=== PATIENT | female | born 1995 | race Caucasian/White ===

== ENCOUNTER 2024-11-13 15:35 | Outpatient (REF) | payer OTHER, SELFPAY ==
[2024-11-13 16:41] LABS: MANUAL DIFF FLAG NO
[2024-11-13 17:13] LABS: Hematocrit 38.1 % (37.0-47.0); Hemoglobin 12.9 g/dl (12.0-16.0); Imm Gran Abs Auto 0.02 X10*3/uL (0.00-0.03); Imm Gran Pct Auto 0.3 % (0.0-0.4); Lymphocytes Absolute Auto 2.9 X10*3/uL (1.2-4.9); Mean Corpuscular HGB Conc 33.9 g/dl (31.0-35.0); Mean Corpuscular Hemoglobin 30.5 pg (27.0-33.0); Mean Corpuscular Volume 90.1 fL (80.0-98.0); NRBC Abs Auto 0.000 X10*3/uL (0.0-0.012); NRBC Pct Auto 0.0 /100WBC (0.0-0.2); Platelet Count 320 X10*3/uL (160-400); Red Blood Count 4.23 X10*6/uL (4.20-5.50); White Blood Count 7.6 X10*3/uL (4.8-10.8)
[2024-11-13 17:18] LABS: Hemoglobin A1C 120.9273 umol/L; Total Hemoglobin (HGBA1C) 3407.7121 umol/L
[2024-11-13 17:36] LABS: Appearance Urine Clear; Glucose Urine UA Negative (Negative); PH 7.5 (5.0-9.0); Specific Gravity - Urine <= 1.005 (1.005-1.025)
[2024-11-13 17:48] LABS: Alanine Aminotransferase 17 U/L (0-31); Albumin Level 5.0 g/dL (3.5-5.0); Alkaline Phosphatase 63 U/L (39-117); Anion Gap 11 (12-20); Aspartate Amino Transferase 13 U/L (5-31); Blood Urea Nitrogen 9 mg/dL (9-16); Calcium 9.9 mg/dL (8.4-10.2); Carbon Dioxide 29 mmol/L (22-29); Chloride 106 mmol/L (96-108); Estimated Glomerular Filt Rate > 60; Magnesium 2.2 mg/dL (1.6-2.6); Potassium 3.8 mmol/L (3.3-5.1); Sodium 142 mmol/L (135-145); Total Protein 7.5 g/dL (6.5-8.0)
[2024-11-13 18:10] LABS: Folate 15.2 ng/mL (> or = 4.0); Vitamin B12 461 pg/mL (200-900)
== END 2024-11-13 15:36 | disposition home or self-care (01) ==
LOC: HO.LAB 15:35
PROVIDERS: PCP Physician Assistant Medical; Visit Provider Physician Assistant Medical
DX: Z00.00 Encounter for general adult medical examination without abnormal findings (principal); Z01.818 Encounter for other preprocedural examination; M23.41 Loose body in knee, right knee; F41.9 Anxiety disorder, unspecified; E04.1 Nontoxic single thyroid nodule
CPT/HCPCS: 36415; 80053; 81003; 82248; 82306; 82607; 82746; 83036; 83735; 84443; 85025; 86140; 96127

== ENCOUNTER 2024-11-13 15:35 | Outpatient (AMB) | payer OTHER, SELFPAY ==
--- NOTE | 2024-11-13 15:39 | A.OFFPC_ITS ---
Vital Signs 11/13/24 15:43 Height 5 ft 4.09 in Weight 139 lb BMI 23.8 BP 118/57 L Respiration 14 Pulse 66 Pulse Source Pulse Oximeter Temp 98.2 F Temp Source Temporal Artery Scan Pulse Oximetry (%) 97 Oxygen Delivery Method Room Air Intake Visit Reasons: preop Medical Affairs Manager Required: No Accompanied by: Self / Same As Patient Allergies No Known Allergies Allergy (Verified 11/13/24 16:41) Medication List - Last Reconciled 11/13/24 by Indy Alonzo PA-C No Known Home Meds Tobacco use date assessed: 11/13/24 Dental Screening Dental Screen Date: 11/13/24 Did you have a dental visit in the last 12 months?: No Did you have a dental problem in the last 6 months where you did not have access to dental care?: No Was dental information given to patient?: Patient has dentist HPI preop HPI Details The patient is a 29-year-old female presenting for a annual physical exam in addition a preoperative appointment for right knee arthroscopy and loose body removal. She experienced sudden right knee pain while bending down, which progressed to a burning sensation and the feeling of quarters in her knee. An x- ray and MRI confirmed a loose body in the knee, likely from a previous injury. The patient reports anxiety, with occasional chest pain, but denies significant past surgical history except for a minor procedure at age [age]. She has no known anesthesia issues, though she recalls vomiting post-operatively as a child. An enlarged thyroid was noted during the physical examination, with a family history of thyroid issues. Previous blood work three years ago was unremarkable despite occasional throat pain. 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 - Family Planning: Recently removed IUD and started taking folic acid in preparation for . [facility] Medical History (Updated 11/13/24 @ 16:44 by Indy Alonzo PA-C) Anxiety Loose body of right knee Annual physical exam Thyroid nodule Pre-op evaluation Family History Father Basal cell carcinoma Mother No problems noted. Social History Housing: House Alcohol intake: current Alcohol intake frequency: holidays/special occasions only Patient Tobacco Use Status: Never used Tobacco service: No Current occupational status: employed Cognitive needs: No Hearing needs: No Vision needs: Yes (rx glasses) Questionnaire PHQ-9 Over the last 2 weeks, how often have you been bothered by any of the following problems? 1. Little interest or pleasure in doing things: not at all 2. Feeling down, depressed, or hopeless: not at all 3. Trouble falling or staying asleep, or sleeping too much: not at all 4. Feeling tired or having little energy: not at all 5. Poor appetite or overeating: not at all 6. Feeling bad about yourself - or that you are a failure or have let yourself or your family down: not at all 7. Trouble concentrating on things, such as reading the newspaper or watching television: not at all 8. Moving or speaking so slowly that other people could have noticed. Or the opposite - being so fidgety or restless that you have been moving around a lot more than usual: not at all 9. Thoughts that you would be better off or of hurting yourself in some way: not at all Total score: 0 Depression Screening Interpretation: Negative Depression Screening Done: Yes 43295 - PHQ-9 Billing: Yes Source: Developed by Drs. Ricky Marcus, Keily Rico, Arsenio Jean Baptiste and colleagues, with an educational christine from [facility]. Thrive Questionnaire Date Thrive assessed: 11/13/24 I am a: Patient What is your living situation today?: I have a steady place to live Within the past 12 months, did the food you bought not last and you didn't have the money to get more?: Never true Within the past 12 months, did you worry whether your food would run out before you got money to buy more?: Never true Do you have trouble paying for medicines?: No Do you have trouble getting transportation to medical appointments?: No Do you have trouble paying your heating and electricity bill?: No Do you have trouble taking care of your child, family member or friend?: No Do you have trouble with day-to-day activities such as bathing, preparing meals, shopping, managing finances, etc.?: No Are you currently unemployed and looking for a job?: No Are you interested in more education?: No Please select the resources that you would like help with: None THRIVE Score: 0 AUDIT C Alcohol Use Questionnaire (AUDIT-C) 1. How often do you have a drink containing alcohol?: Monthly or less 2. How many drinks containing alcohol do you have on a typical day when you are drinking?: 1 or 2 3. How often do you have six or more drinks on one occasion?: Never Total Score: 1 Score Reviewed/Action Taken: No ANNA MARIE-7 AMB Questionnaire ANNA MARIE-7 Date ANNA MARIE - 7 assessed: 11/13/24 Feeling nervous, anxious, or on edge: 2 = More than half the days Not being able to stop or control worryin = Several days Worrying too much about different things: 1 = Several days Trouble relaxin = Several days Being so restless that it is hard to sit still: 1 = Several days Becoming easily annoyed or irritable: 0 = Not at all Feeling afraid as if something awful might happen: 0 = Not at all Total ANNA MARIE-7 score (0-4 normal; 5-9 mild; 10-14 moderate; 15-21 severe): 6 Source: Developed by Drs. Ricky Marcus, Keily Rico, Arsenio Jean Baptiste and colleagues, with an educational christine from [facility]. ANNA MARIE-7 Assessment Billing ANNA MARIE-7 Assessment Tool: ANNA MARIE-7 Assessment 47490 Review of Systems Const Details: - Cardiovascular: Denies chest pain, orthopnea, or syncope. - Respiratory: Denies dyspnea, cough, or wheezing. - Musculoskeletal: Reports right knee pain with inability to hyperextend. - Endocrine: Reports occasional throat pain, denies other symptoms. All systems reviewed & are unremarkable except as noted in HPI and below Physical exam (Primary Care) Vital Signs: Last Vital Signs Temp 98.2 F 11/13/24 15:43 Pulse 66 11/13/24 15:43 Resp 14 11/13/24 15:43 BP 118/57 L 11/13/24 15:43 Pulse Ox 97 11/13/24 15:43 Oxygen Delivery Method Room Air 11/13/24 15:43 Care Plan Goal for BP management: <140/90 at Goal BMI result Body Mass Index 23.8 Normal BMI Tobacco/Smoking Status: Tobacco use Status Tobacco use date assessed 11/13/24 11/13/24 15:41 Patient Tobacco Use Status Never used Tobacco 11/13/24 15:48 PHQ-9: PHQ-9 Score PHQ-9: Total score 0 11/13/24 15:49 Depression Screening Interpretation: Negative Thrive Assessment: Date of Thrive Assessment Date Thrive assessed 11/13/24 11/13/24 15:41 Const Other: Appearance: Alert. Oriented X3. No acute distress. Head: Normal external exam. Normocephalic. Atraumatic. Eyes: Pupils are equal, round, and reactive to light. Extraocular movements intact. Conjunctiva and sclera normal. Eyelids normal. Ears: External auditory canal normal. Tympanic membranes normal. Throat: Pharynx normal. Uvula midline. Moist mucous membranes. Neck: Normal inspection. Neck supple. Full range of motion. No adenopathy. Thyroid appears slightly enlarged. No meningeal signs. No neck mass noted. Cardiovascular: Normal heart rate and rhythm. Heart sound normal. No murmurs noted. Pulses normal throughout. Respiratory: No respiratory distress. Painless inspiration. Breath sounds normal. No wheezes/rales/rhonchi noted. Chest nontender. No accessory muscle usage noted or decreased air movement noted. Abdomen: Soft and nontender. Bowel sounds normal in all 4 quadrants. No distention noted. No organomegaly noted. No visible injury noted. Back: No costovertebral angle tenderness. Full range of motion noted. Skin: Skin warm and dry. Normal skin color. Normal skin turgor. No rashes/lesions/lacerations noted. Extremities: No lower extremity edema. Right knee cannot hyperextend. Extremities exhibit normal range of motion. Extremities nontender. Neuro: Oriented X 3. No motor deficit. No sensory deficit. Reflexes normal. Results Reviewed Results Reviewed: - Imaging: X-ray and MRI of the right knee showed a loose body. Coding Level of Care Code New Pt Level 4 (18497) New Pt Prev Care 18-39yr(87684 Diagnoses Annual physical exam Z00.00 Pre-op evaluation Z01.818 Loose body of right knee M23.41 Anxiety F41.9 Thyroid nodule E04.1 Additional Codes PHQ-9 - 94260 - PHQ-9 Billing: Yes ([id number]) ANNA MARIE-7 Assessment Billing - ANNA MARIE-7 Assessment Tool: ANNA MARIE-7 Assessment [id number] ([id number]) Time Spent (min) 50 Assessment & Plan Assessment & Plan (1) Annual physical exam: Code(s): Z00.00 - Encounter for general adult medical examination without abnormal findings Category: Medical Plan: Patient has a normal physical exam today. Preventative labs ordered at this time. Baseline EKG ordered at this time. (2) Pre-op evaluation: Code(s): Z01.818 - Encounter for other preprocedural examination Category: Medical Plan: Regarding preop clearance, the patient is at acceptable risk for proposed surgery. Reviewed with the patient that no surgery is completely free of risk and that this examination is to assist the surgeon and reviewing informed consent. (3) Loose body of right knee: Code(s): M23.41 - Loose body in knee, right knee Category: Medical Plan: The patient is scheduled for right knee arthroscopy and loose body removal on 11/14/2024 under general anesthesia at the [facility]. Preoperative blood work including CBC, CMP, and EKG are ordered to ensure surgical readiness. (4) Anxiety: Code(s): F41.9 - Anxiety disorder, unspecified Category: Medical Plan: The patient reports anxiety, particularly related to the upcoming surgery and family planning. Reassurance was provided regarding the benign nature of most thyroid nodules to alleviate anxiety. (5) Thyroid nodule: Code(s): E04.1 - Nontoxic single thyroid nodule Category: Medical Plan: An ultrasound of the thyroid is ordered to assess the enlargement noted during the physical examination. The patient is advised that most thyroid nodules are benign, and follow-up will depend on ultrasound findings. Plan Plan Patient was informed and verbally consented to the use of an ambient scribe for clinic note documentation during this visit. 1. Right Knee Loose Body The patient is scheduled for right knee arthroscopy and loose body removal on 11/14/2024 under general anesthesia at the [facility]. Preoperative blood work including CBC, CMP, and EKG are ordered to ensure surgical readiness. 2. Anxiety The patient reports anxiety, particularly related to the upcoming surgery and family planning. Reassurance was provided regarding the benign nature of most thyroid nodules to alleviate anxiety. 3. Enlarged Thyroid An ultrasound of the thyroid is ordered to assess the enlargement noted during the physical examination. The patient is advised that most thyroid nodules are benign, and follow-up will depend on ultrasound findings. I discussed with the patient the plan for her upcoming right knee arthroscopy and loose body removal, emphasizing the importance of preoperative blood work and EKG to ensure surgical readiness. We also talked about her anxiety, particularly concerning the surgery and family planning, and I reassured her about the benign nature of most thyroid nodules. Orders: Orders C Reactive Protein Today Z00.00 - Encounter for general adult medical examination without abnormal findings Hemoglobin A1c Today Z00.00 - Encounter for general adult medical examination without abnormal findings Magnesium Today Z00.00 - Encounter for general adult medical examination without abnormal findings Comprehensive Met. Panel Today Z00.00 - Encounter for general adult medical examination without abnormal findings Vitamin D 25-OH Total Today Z00.00 - Encounter for general adult medical examination without abnormal findings ECG 12 lead EKG Today Z01.818 - Encounter for other preprocedural examination US thyroid Today E04.1 - Nontoxic single thyroid nodule Complete Blood Count Auto Diff Today Z00.00 - Encounter for general adult medical examination without abnormal findings Liver Panel Today Z00.00 - Encounter for general adult medical examination without abnormal findings Vitamin B12 and Folate Today Z00.00 - Encounter for general adult medical examination without abnormal findings TSH reflex Free T4 Today Z00.00 - Encounter for general adult medical examination without abnormal findings UA CC w/rflx Micro + Cult Today Z00.00 - Encounter for general adult medical examination without abnormal findings Patient Instructions: - Go to the hospital immediately for blood work and EKG. - Schedule an ultrasound for the thyroid within one month. - Follow up with endocrinology if thyroid ultrasound shows nodules. - Fax results to orthopedics prior to surgery.
[2024-11-13 15:43] VITALS: BP 118/57; PULSE 66; RESP 14; TEMP 36.8; O2SAT 97; BMI 23.8
--- OUTSIDE RECORDS SUMMARY | 2024-11-13 16:49 | XMS_ITS | Continuity of Care Document ---
Author Organization [place] [facility] P[facility] Burns AONE [place] Address [address] [facility] [address] [place] [address] Care Team Providers Care Environmental Auditor Name Role Phone ARJUN MATAMOROS Primary Care Provider [phone] ARJUN MATAMOROS Referring Provider Assessment Encounter Date Assessment Date Assessment LastModified by Organization Details LastModified Time 11/12/2024 11/12/2024 Persistent right knee pain in the setting of a medial femoral condyle OCD lesion, loose body. She finds her current level of symptoms unmanageable and wishes to proceed with surgical intervention. We will go ahead and confirm her surgical date. PLANNED PROCEDURE: right knee arthroscopy, loose body removal, debridement medial femoral condyle OCD lesion, possible microfracture, possible AYANNA biopsy. I reviewed my findings and plan with the patient today. We went over the nature of the upcoming surgery as well as the anticipated recovery time. She understands that the specific procedure performed will be dictated by our findings at the time of surgery. She understands that additional pathology may be identified and it would be addressed accordingly. She has given her permission to address other pathology if it is necessary. She understands that this may ultimately end up being a two-stage procedure if she does not respond symptomatically to the debridement, loose body removal, chondroplasty. Informed consent was obtained today. The patient clearly understands the information presented and is capable of making decisions voluntarily. They demonstrated a clear understanding of the problem and the risks and benefits of treatment. The discussion included a description of the proposed treatment, including the purpose, duration, methods and implements used, as well as the probability of success. We discussed all material risks of the procedure, as well as the possibility of unforeseen or unanticipated risks. The material risks include, but are not limited to infection, bleeding, injury to blood vessels and/or nerves, scarring, stiffness, no change in symptoms, need for further surgery, blood clots, stroke, and . The discussion further included reasonable alternatives and the risks of not being treated. Postoperative pain medications were reviewed, and side effects discussed. We confirmed their postoperative appointment. I have recommended the patient use a cold/compression unit post-operatively to reduce swelling, improve pain, and reduce the use of oral narcotic pain medications. The patient has been instructed on the use of the machine. The cuff will always be applied with the skin protected. PRIOR: I went over my findings with her. We looked at the MRI together. This does confirm our suspicion that she has an unstable OCD lesion of her medial femoral condyle. I reviewed the natural history. At this point the lesion looks unstable and I think it is highly likely she will continue to experience knee symptoms with an effusion and mechanical symptoms unless we addressed things. She is in agreement, she is feeling limited with activity due to her persistent mechanical symptoms in the knee. She is a candidate to consider a right knee arthroscopy, loose body removal, debridement medial femoral condyle OCD lesion, possible microfracture, possible AYANNA biopsy. I went over the nature of the surgery with her as well as the anticipated recovery time. This may be the first stage of a two-stage procedure, she may ultimately be a candidate for a cartilage zoroastrianism procedure down the line. Discussed with her that sometimes patients after a first stage with debridement of the lesion and removal of loose bodies can obtain satisfactory relief and not necessarily need anything further. Discussed that an arthroscopy is also very helpful for diagnostic purposes to assess the size of the lesion and determine what other procedures might be of benefit for her. She is going to give this all consideration and we will be in touch with the entry level programmer if she desires to move forward. In the interim I suggest she curtail any high demand activities. Icing protocol reviewed. PRIOR: I went over my findings with her. We looked at her recent x-rays. My suspicion is that she has an unstable OCD lesion of her medial femoral condyle. She does have mild retropatellar degenerative changes. Cannot exclude a concomitant medial meniscus tear. Given her symptoms and findings on x-ray she needs an MRI. Order placed. In the interim she will continue icing per protocol. She will work on gentle stretching and range of motion. She will curtail athletic activities. Recheck in 2 to 3 weeks once we have the MRI done for further decision making. Questions invited and answered. Not available 11/12/2024 12:05:57 Plan of Treatment Reminders Order Date Submit Date Provider Last Modified By Organization Details Last Modified Time Details Appointments [id number] TIME TBD by Facility 2024 02:15P M Tej Luna MD Not available Not available Not available POST-OP 2024 02:15P M MARIA E MOBLEY PA-C Not available Not available Not available Lab None recorded. Referral None recorded. Procedures None recorded. Surgeries None recorded. Imaging None recorded. Medication Orders None recorded. Patient TargetsNo targets recorded. Patient Instructions Encounter Date Encounter Id Patient Instructions Last Modified By Organization Details Last Modified Time 11/12/2024 [id number] I independently reviewed her right knee x-rays from 09/17/2024 that were performed at an outside facility. These were scanned into our joints PACS program. There is irregularity of the medial femoral condyle with adjacent calcification consistent with an OCD lesion. Joint space overall well-maintained. Mild retropatellar spurring. Not available 11/12/2024 05:58:57 Reason for Referral None Reported. Results Created Date Observation Date Name Description Value Unit Range Abnormal Flag Note LastModifiedBy Organization Detail LastModifiedTime 10/13/1910/12/2024 MRI, knee, w/o contr ast No observ ation record ed. [email or web address] [facility] [address], [place], [address], 10/12/2024 12:17:24 10/13/19 25 10/12/2024 MRI, knee, w/o contr ast No observ ation record ed. [email or web address] [facility] ([facility] [address], [place], [address], 10/12/2024 12:17:25 10/13/19 25 10/12/2024 MRI, knee, w/o contr ast No observ ation record ed. [email or web address] [facility] ([facility] [address], [place], [address], 10/12/2024 12:17:25 10/13/19 25 10/12/2024 MRI, knee, w/o contr ast No observ ation record ed. [email or web address] [facility] [address], [place], [address], 10/12/2024 12:17:25 Result Notes None recorded. Problems Name Problem SNOMED Code Status Onset Date Resolution Date Notes Provider Name and Address Organization Details Recorded Time Pain of right knee joint 7901398911922 00 Active 2024 Tej Luna MD [address], [place], [address], [place] [facility], [facility] 06:44:39 Arthropathy of knee joint 988497437 Active 2024 Tej Luna MD [address], [place], [address], [place] [facility] 11:15:31 Effusion of joint of right knee 9695946586296 04 Active 2024 Tej Luna MD [address], [place], [address], [place] [facility], [facility] 5 12:00:31 Problem Notes None recorded. Medical Equipment None Reported. Allergies No known drug allergies Medications Name Sig Start Date Stop Date Status Note LastModified by Organization Details LastModified Time meloxicam 15 mg tablet 1 tablet every day in the morning for 7 days, Start the day after surgery 2024 active Not Available Not Available Not Avai lable Enteric Coated Aspirin 81 mg tablet,ally yed release 1 tablet every 12 hours with meals for 21 days, start day after surgery 2024 active start day after surgery Not Available Not Available Not Available ondansetron 4 mg disintegrat ing tablet Place 1 tablet twice a day by transling ual route as needed, for nausea. 2024 active Not Available Not Available Not Avai lable oxycodone 5 mg tablet 1 tablet every 6-8 hours as needed, do not start until after surgery 2024 active Not Available Not Available Not Avai lable Vitals Date Recorded Body height Body mass index (BMI) Body weight Provider Name and Address Organization Details Last Updated DateTime 11/12/2024 160.02 cm 26 kg/m2 11165.[address] [place] [facility] 11/12/2024 09:42:54 Social History None recorded. Functional Status Question Answer Note LastModified by Organizat ion Details LastModified Time Do you use any illicit or recreational drugs? No [email or web address] Information not available 10/01/2024 Do you or have you ever used any other forms of tobacco or nicotine? No [email or web address] Information not available 10/01/2024 What is your level of alcohol consumption? 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 Family History Nothing Reported. Medical History Condition Response Asthma Y Gynecological HistoryNo gynecological history recorded. Obstetrics History GPAL:G 0 P 0 0 0 0 Past Encounters Encounter ID Performer Location Encounter Start Date Encounter Closed Date Diagnosis/Indication Diagnosis SNOMED-CT Code Diagnosis ICD10 Code Diagnosis IMO Codes Diagnosis Note [id number] MD BIANCA Griffin [address] [address] 10/23/2024 15:52:18 10/23/2024 16:43:01 Pain of right knee joint 8206671712 22194 M25.561 487798 Arthropath y of knee joint 154010748 M95.8 78545521 Effusion o f joint of right knee 3946158544 30295 M25.208 [id number] MD BIANCA Griffin [address] [address] 11/12/2024 09:27:34 11/12/2024 10:11:34 Pain of right knee joint 7673299542 84392 M25.561 272626 Arthropath y of knee joint 824997124 M95.8 42219052 Effusion o f joint of right knee 9592271248 51210 M25.939 [id number] Health Concerns Section Related Observation LastModified by Organization Detai ls LastModified Time None Recorded Concern Status LastModified by Organization Details LastModified Time None Recorded Payers Encounter Date Sequence Insurance Name Policy Number Policy Gregory Covered Member ID Gregory Member ID Guarantor Name 11/12/2024 Maty FLORES [id number] Sara Antoine [id number] Sara Antoine Notes Date Note Type Note Provider Name and Address Organization Details Recorded Time 11/12/2024 text/html Patient presents for reevaluation of her ongoing right knee pain. No interval change in her symptoms. Her symptoms are predominantly mechanical and difficult to predict. She is frustrated by her ongoing symptoms and wishes to proceed with surgical intervention. She denies any allergies. She does not take any blood thinners. She denies a history of blood clots or DVT. Denies a history of clotting disorders. Denies a history of adverse reactions to anesthesia or history of malignant hyperthermia. PRIOR:Patient returns for reevaluation of her right knee. She has been careful with activity and therefore the knee has been somewhat more tolerable. She still is worried about mechanical symptoms. She did have her MRI done and brings it in today for review. PRIOR:Very pleasant 29-year-old female here for an evaluation of right knee pain with mechanical symptoms and swelling. 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 If she would go to a wedding and dance a lot she would have some knee achiness for a day or 2. 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 In late August she was bending down and started to notice some intermittent medial shooting pains. She had a few episodes. The most dramatic episode was around 09/16/2024. The knee swelled up afterwards. She could not put any pressure on the knee for at least 10 minutes. She treated with icing and Advil. She ended up going to an urgent care and had x-rays. She was told she had arthritis . Since that time she has been managing, just being careful. She feels she cannot fully comfortably extend the knee. If she twists or turns the knee can be uncomfortable. At rest she is generally fine. She denies radiating pain to the hip or ankle. She denies any contralateral knee symptoms that are similar. 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 Non-smoker. 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 Tej Luna MD [address], [place], [address], [place] [facility] 11/12/2024 12:06:05 OBGyn Episode No OBEpisode recorded.
--- OUTSIDE RECORDS SUMMARY | 2024-11-13 16:49 | XMS_ITS | Data Portability ---
Author Organization [place] [facility] Piedad Burns AONE [place] Address [address] [place] [address] Care Team Providers Care Marketing Programs Manager Name Role Phone ARJUN MATAMOROS Primary Care Provider [phone] ARJUN MATAMOROS Referring Provider Assessment Encounter Date Assessment Date Assessment LastModified by Organization Details LastModified Time 10/01/2024 10/01/2024 I went over my findings with her. [...] making. Questions invited and answered. Not available 10/01/2024 11:57:46 10/23/2024 10/23/2024 I went over my findings with her. [...] ultimately be a candidate for a cartilage yazidism procedure down the line. Discussed with her [...] we will be in touch with the surgical rn if she desires to move forward. In the interim I suggest she curtail any high demand activities. Icing protocol reviewed. Questions invited and answered. Greater than 30 minutes was spent with the encounter today, including face to face time with the patient, documentation, review of records/imaging if applicable, and coordination of care. PRIOR: I went over my findings with [...] making. Questions invited and answered. Not available 10/23/2024 17:22:21 11/12/2024 11/12/2024 Persistent right knee pain in [...] ultimately be a candidate for a cartilage yazidism procedure down the line. Discussed with her [...] we will be in touch with the surgical rn if she desires to move forward. In [...] Organization Details Last Modified Time Details Appointments [id number] TIME TBD by Facility 2024 02:15P M Tej Luna MD Not available Not available Not available POST-OP 2024 02:15P M MARIA E MOBLEY PA-C Not available Not available Not available Lab None recorded. Referral None recorded. Procedures None recorded. Surgeries knee arthrosco py (SURG) 2024 025 [email or web address] Not available 11/06/2024 12:45:07 Imaging MRI, knee, w/o contrast 2024 025 MAIDA Not available 10/12/2024 12:09:22 Medication Orders None recorded. Patient TargetsNo targets recorded. Patient Instructions Encounter Date Encounter Id Patient Instructions Last Modified By Organization Details Last Modified Time 10/01/2024 [id number] I independently reviewed her right knee x-rays from 09/17/2024 that were performed at an outside facility. These were scanned into our joints PACS program. There is irregularity of the medial femoral condyle with adjacent calcification consistent with an OCD lesion. Joint space overall well-maintained. Mild retropatellar spurring. Not available 10/01/2024 11:57:03 10/23/2024 [id number] I independently reviewed her right knee x-rays from 09/17/2024 that were performed at an outside facility. These were scanned into our joints PACS program. There is irregularity of the medial femoral condyle with adjacent calcification consistent with an OCD lesion. Joint space overall well-maintained. Mild retropatellar spurring. Not available 10/23/2024 07:02:25 11/12/2024 [id number] I independently reviewed her right knee x-rays [...] contr ast No observ ation record ed. [place] [id number] [facility] [address], [place], [address], 10/12/2024 12:17:24 10/13/1910/12/2024 MRI, knee, w/o contr ast No observ ation record ed. [place] [id number] [facility] [address], [place], [address], 10/12/2024 12:17:25 10/13/1910/12/2024 MRI, knee, w/o contr ast No observ ation record ed. [place] [id number] [facility] [address], [place], [address], 10/12/2024 12:17:25 10/13/19 25 10/12/2024 MRI, knee, w/o contr ast No observ ation record ed. [place] [id number] [facility] [address], [place], [address], 10/12/2024 12:17:25 Result Notes None recorded. Problems Name Problem SNOMED Code Status Onset Date Resolution Date Notes Provider Name and Address Organization Details Recorded Time Pain of right knee joint 9363379297635 00 Active 2024 Tej Luna MD [address], [place], [address], [place] [facility] [place], [facility] 06:44:39 Arthropathy of knee joint 555652430 Active 2024 Tej Luna MD [address], [place], [address], [place] [facility] [place], [facility] 11:15:31 Effusion of joint of right knee 1640024462315 04 Active 2024 Tej Luna MD [address], [place], [address], [place] [facility], [facility] 12:00:31 Problem Notes None recorded. Medical Equipment [...] and Address Organization Details Last Updated DateTime 10/01/2024 160.02 cm 25.7 kg/m2 88720.[address] [place] [facility] [place] 10/01/2024 11:03:35 Date Recorded Body height Body mass index (BMI) Body weight Provider Name and Address Organization Details Last Updated DateTime 10/23/2024 160.02 cm 25.9 kg/m2 [address]228[address] [place] [facility] 10/23/2024 16:09:42 Date Recorded Body height Body mass index (BMI) Body weight Provider Name and Address Organization Details Last Updated DateTime 11/12/2024 160.02 cm 26 kg/m2 55074.[address] [place] [facility] 11/12/2024 09:42:54 Social History None recorded. Functional Status Question Answer Note LastModified by Organizat ion Details LastModified Time Do you use any illicit or recreational drugs? No [email or web address] Information not available 10/01/2024 Do you or have you ever used any other forms of tobacco or nicotine? No Information not available 10/01/2024 What is your level of alcohol consumption? 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 Family History Nothing Reported. Medical History Condition Response Asthma Y Gynecological HistoryNo gynecological history recorded. Obstetrics History GPAL:G 0 P 0 0 0 0 Past Encounters Encounter ID Performer Location Encounter Start Date Encounter Closed Date Diagnosis/Indication Diagnosis SNOMED-CT Code Diagnosis ICD10 Code Diagnosis IMO Codes Diagnosis Note [id number] MD BIANCA Griffin [address] [address] 10/01/2024 10:41:27 10/01/2024 11:18:40 Pain of right knee joint 8033982052 96581 M25.561 665650 Arthropath y of knee joint 831147467 M95.8 58635670 Effusion o f joint of right knee 8780894496 71423 M25.747 [id number] MD RADHA [address] [address] 10/23/2024 15:52:18 10/23/2024 16:43:01 Pain of right knee joint 1132629119 74429 M25.561 997861 Arthropath y of knee joint 759457020 M95.8 88494543 Effusion o f joint of right knee 7447408312 04020 M25.824 [id number] Tej Luna MD [address] [place] [address] 11/12/2024 09:27:34 11/12/2024 10:11:34 Pain of right knee joint 8792800843 55251 M25.561 631441 Arthropath y of knee joint 421509742 M95.8 63279460 Effusion o f joint of right knee 9857498616 61427 M25.398 2496788 Health Concerns Section Related Observation LastModified by Organization Detai ls LastModified Time None Recorded Concern Status LastModified by Organization Details LastModified Time None Recorded Advance Directives Directive None Recorded Payers Insurance Date Sequence Insurance Name Policy Number Policy Gregory Covered Member ID Gregory Member ID Guarantor Name 11/09/2024 1 SANDRA [id number] Sara Antoine [id number] Sara Antoine Notes Date Note Type Note Provider Name and Address Organization Details Recorded Time 10/01/2024 text/html Very pleasant 29-year-old female here for an evaluation [...] that are similar. 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 Tej Luna MD [address], [place], [address], [place] [facility] 10/01/2024 12:00:56 10/23/2024 text/html Patient returns for reevaluation of her right knee. [...] that are similar. 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 Tej Luna MD [address], [place], [address], [place] [facility], [facility] 10/23/2024 17:22:29 11/12/2024 text/html Patient presents for reevaluation of [...] that are similar. 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 Tej Luna MD [address], [place], [address], [place] [facility], [facility] 11/12/2024 12:06:05 OBGyn Episode No OBEpisode recorded.
--- OUTSIDE RECORDS SUMMARY | 2024-11-13 16:49 | XMS_ITS ---
Author Name [facility] Organization Unknown History of Medication Use Medication Directions Dispensed Refills Start Date End Date Stat us active Problems Problem Status Onset Date Problem Type Date of Resoluti on Source Arthropathy of knee joint active 2024-10-01 ProblemAct [facility] Effusion of joint of right knee active 2024-10-01 ProblemAct [facility] Pain of right knee joint active 2024-10-01 ProblemAct [facility] Encounters Encounter Type Encounter Reason Primary Diagnosis Location Date Ambulatory [facility] 11/12/2024 [facility] 11/07/2024 [facility] 10/22/2024 [facility] 10[facility]22/2024 [facility] 10/02/2024 [facility] 10/01/2024 [facility] 10/01/2024 Amb[facility] 10/01/2024 [facility] 10/01/2024 [facility] 09/19/2024 Care Team Organization Name Specialty Phone Email Start Date End Da te [facility] D [facility] 2024 [facility] 2024"
== END 2024-11-13 16:06 | disposition home or self-care (01) ==
PROVIDERS: PCP Physician Assistant Medical; Visit Provider Physician Assistant Medical
DX: Z00.00 Encounter for general adult medical examination without abnormal findings (principal); E04.1 Nontoxic single thyroid nodule; M23.41 Loose body in knee, right knee; F41.9 Anxiety disorder, unspecified

== ENCOUNTER 2024-12-24 11:27 | Outpatient (REF) | payer OTHER, SELFPAY ==
[2024-12-24 12:15] LABS: UPreg QC Valid YES
--- OUTSIDE RECORDS SUMMARY | 2024-12-24 13:49 | XMS_ITS | Data Portability ---
Author Organization [place] [facility] [place] Address [address] [place] [address] Care Team Providers Care Dietary Supervisor Name Role Phone ARJUN MATAMOROS Primary Care Provider ARJUN MATAMOROS Referring Provider [phone] Assessment Encounter Date Assessment Date Assessment LastModified [...] ultimately be a candidate for a cartilage voodoo procedure down the line. Discussed with her [...] we will be in touch with the dust sampler if she desires to move forward. In [...] ultimately be a candidate for a cartilage voodoo procedure down the line. Discussed with her [...] we will be in touch with the dust sampler if she desires to move forward. In [...] invited and answered. Not available 11/12/2024 12:05:57 11/22/2024 11/22/2024 Patient is now 8 days status post right knee surgery and is overall recovering well thus far. I reviewed my findings with the patient today. We reviewed the operative findings. She has physical therapy available to her at her office and I gave her a prescription for this today. She will follow-up in 4 weeks for recheck. Questions were invited and answered. Routine incision care reviewed. Medications reviewed. Side effects discussed. Precautions reviewed. DME adjusted as appropriate. Knee Arthroscopy recovery outline: Start HEP 2 days following surgery. Physical therapy only if needed. May use a knee sleeve if desired. May bear weight to tolerance. Use crutches until you can walk comfortably without a limp. Icing per protocol. 15-20 minutes on affected area with skin protected. May repeat hourly as needed. Alternatively, may use cryomachine with skin precautions. Keep incisions dry until sutures removed. No swimming or submerging incisions for three weeks after surgery. Encourage extension exercises. Goal to regain full ROM by 3-4 weeks. Typical return to work will depend on demands of the occupation. Typical return to athletics is 4-8 weeks and dependent on symptoms and recovery. [email or web address] Not available 11/22/2024 16:46:43 Plan of Treatment Reminders Order Date Submit Date Provider Last Modified By Organization Details Last Modified Time Details Appointments None recorded. Lab None recorded. Referral None recorded. Procedures None recorded. Surgeries knee arthroscopy (SURG) 2024 025 MAIDA Not available 10:07:28 Imaging MRI, knee, w/o contrast 2024 025 MAIDA Not available 12:09:22 Medication Orders None recorded. Patient TargetsNo targets recorded. Patient Instructions Encounter Date Encounter Id Patient Instructions Last Modified By Organization Details Last Modified Time 10/01/2024 [id number] I independently reviewed her right knee x-rays from 09/17/2024 that were performed at an outside facility. These were scanned into our joints PACS program. There is irregularity of the medial femoral condyle with adjacent calcification consistent with an OCD lesion. Joint space overall well-maintained. Mild retropatellar spurring. Not available 10/01/2024 11:57:03 10/23/2024 [id number] I independently reviewed her right knee x-rays from 09/17/2024 that were performed at an outside facility. These were scanned into our joints PACS program. There is irregularity of the medial femoral condyle with adjacent calcification consistent with an OCD lesion. Joint space overall well-maintained. Mild retropatellar spurring. Not available 10/23/2024 07:02:25 11/12/2024 [id number] I independently reviewed her right knee x-rays [...] observ ation record ed. [email or web address] [facility] ([facility]) [address], [place], [address], 10/12/2024 12:17:24 10/13/19 25 10/12/2024 MRI, knee, w/o contr ast No [place]ion [place]. [email or web address] [id number] [facility] ([facility]) [address], [place], [address], 10/12/2024 12:17:25 10/13/19 25 10/12/2024 MRI, knee, w/o contr ast No observ [place]ion [place] ed. [email or web address] [id number] [facility] ([facility]) [address], [place], [address], 10/12/2024 12:17:25 10/13/19 25 10/12/2024 MRI, knee, w/o contr ast No observ ation [place] ed. [email or web address] [id number] [facility] ([facility]) [address], [place], [address], 10/12/2024 12:17:25 Result Notes None recorded. Problems Name Problem SNOMED Code Status Onset Date Resolution Date Notes Provider Name and Address Organization Details Recorded Time Pain of right knee joint 9861051617135 00 Active 2024 Tej Luna MD [address], [place], [address], [place] [facility] 06:44:39 Arthropathy of knee joint 421881847 Active 2024 Tej Luna MD [address], [place], [address], [place] [facility] 5 11:15:31 Effusion of joint of right knee 6098251962868 04 Active 2024 Tej Luna MD [address], [place], [address], [place] [facility] 5 12:00:31 Problem Notes None recorded. Procedures Surgical History Date Name Laterality Status Provider Name and Address Organization Details Recorded Time 11/15/19 25 KNEE ARTHROSCOPY (SURG) completed Carolina Reyes [facility] 11/15/2024 10:07:33 11/15/19 25 KNEE ARTHROSCOPY (SURG) completed Carolina Rodriguezunier [facility] 11/22/2024 11:38:58 Imaging Results None recorded. Procedure Notes None recorded. Medical Equipment None Reported. Allergies No known drug allergies Medications Name Sig Start Date Stop Date Status Note LastModified by Organization Details LastModified Time meloxicam 15 mg tablet 1 tablet every day in the morning for 7 days, Start the day after surgery 2024 active Not Available Not Available Not Avai lable Enteric Coated Aspirin 81 mg tablet,de layed release 1 tablet every 12 hours with meals for 21 days, start day after surgery 2024 active start day after surgery Not Available Not Available Not Available ondansetr on 4 mg disintegr ating tablet Place 1 tablet twice a day by translin gual route as needed, for nausea. 11/22 completed Not Available Not Available Not Available oxycodone 5 mg tablet 1 tablet every 6-8 hours as needed, do not start until after surgery 2024 active Not Available Not Available Not Avai pingle Vitals Date Recorded Body height Body mass index (BMI) Body weight Provider Name and Address Organization Details Last Updated DateTime 10/01/2024 160.02 cm 25.7 kg/m2 [address] [facility] 10/01/2024 11:03:35 Date Recorded Body height Body mass index (BMI) Body weight Provider Name and Address Organization Details Last Updated DateTime 10/23/2024 160.02 cm 25.9 kg/m2 71924.[address] [facility] 10/23/2024 16:09:42 Date Recorded Body height Body mass index (BMI) Body weight Provider Name and Address Organization Details Last Updated DateTime 11/12/2024 160.02 cm 26 kg/m2 88399.[address] [facility] 11/12/2024 09:42:54 Date Recorded Body height Body mass index (BMI) Body weight Provider Name and Address Organization Details Last Updated DateTime 11/22/2024 160.02 cm 26.2 kg/m2 67667.[address] [facility] 11/22/2024 14:29:22 Social History None recorded. Functional Status Question Answer Note LastModified by Organizat ion Details LastModified Time Do you use any illicit or recreational drugs? No [email or web address] Information not available 10/01/2024 Do you or have you ever used any other forms of tobacco or nicotine? No [email or web address] Information not available 10/01/2024 What is your level of alcohol consumption? 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 Family History Nothing Reported. Medical History Condition Response Asthma Y Gynecological HistoryNo gynecological history recorded. Obstetrics History GPAL:G 0 P 0 0 0 0 Past Encounters Encounter ID Performer Location Encounter Start Date Encounter Closed Date Diagnosis/Indication Diagnosis SNOMED-CT Code Diagnosis ICD10 Code Diagnosis IMO Codes Diagnosis Note [id number] [place] [address] 10/01/2024 10:41:27 10/01/2024 11:18:40 Pain of right knee joint 6322744987 82278 M25.561 075962 Arthropath y of knee joint 918845551 M95.8 10508078 Effusion o f joint of right knee 6768133029 60087 M25.351 [id number] [place] [address] 10/23/2024 15:52:18 10/23/2024 16:43:01 Pain of right knee joint 6731730866 39733 M25.561 534752 Arthropath y of knee joint 906074506 M95.8 85505018 Effusion o f joint of right knee 4640652113 89766 M25.784 [id number] Tej Luna MD [place] [address] 11/12/2024 09:27:34 11/12/2024 10:11:34 Pain of right knee joint 0611326104 24719 M25.561 826537 Arthropath y of knee joint 385130962 M95.8 96632324 Effusion o f joint of right knee 3191214731 87277 M25.541 [id number] JEREL LEIVA [address] [place] [address] 11/22/2024 14:15:52 11/22/2024 14:50:20 Postoperative visit 756814237 Z48.89 90191059 History of operative procedure on knee 705787320 Z98.890 213266 DOS 11/14/24: Right knee arthroscop y, loose body removal, debridemen t medial femoral condyle OCD lesion, AYANNA biopsy Health Concerns Section Related Observation LastModified by Organization Detai ls LastModified Time None Recorded Concern Status LastModified by Organization Details LastModified Time None Recorded Advance Directives Directive None Recorded Payers Insurance Date Sequence Insurance Name Policy Number Policy Gregory Covered Member ID Gregory Member ID Guarantor Name 11/28/2024 1 SANDRA [id number] Sara Antoine [id number] Sara Antoine Notes Date Note Type [...] that are similar. 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 Tej Luna MD [address], [place], [address], [place] [facility] 10/01/2024 12:00:56 10/23/2024 text/html Patient returns [...] that are similar. 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 Tej Luna MD [address], [place], [address], [place] [facility] 10/23/2024 17:22:29 11/12/2024 text/html Patient presents [...] that are similar. 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 Tej Luna MD [address], [place], [address], [place] [facility] 11/12/2024 12:06:05 11/22/2024 text/html ROS as noted in the HPI DOS 11/14/24: Right knee arthroscopy, loose body removal, debridement medial femoral condyle OCD lesion, AYANNA biopsy Patient presents for their first post op visit. Patient is now 8 days status post right knee surgery. She reports her preoperative pain is gone. She has some generalized postoperative soreness. This varies between 1 and a 3 on a 10 point scale. Well-controlled with Tylenol. She states she has not done much in the way of her home exercise program as she was nervous to bend the knee until the swelling went down.Patient denies fevers or chills. Denies problems with the incisions. Denies chest pain, calf pain, or shortness of breath. MARIA E MOBLEY PA-C [address], [place], [address], [place] [facility] 11/22/2024 16:46:53 OBGyn Episode No OBEpisode recorded.
== END 2024-12-24 11:28 | disposition home or self-care (01) ==
LOC: HO.LAB 11:27
PROVIDERS: PCP Physician Assistant Medical; Visit Provider Physician Assistant Medical
DX: Z00.00 Encounter for general adult medical examination without abnormal findings (principal); Z32.00 Encounter for pregnancy test, result unknown
CPT/HCPCS: 36415; 81025; 84702